=== PATIENT | female | born 1970 | race Caucasian/White ===

== ENCOUNTER 2016-05-10 11:12 | Emergency (ER) | payer MEDICAID ==
[~2016-05-10] VITALS: Ht 152.4 cm; Wt 80.5 kg
[~2016-05-10 11:12] MED LIST: AMO500 PO; CIPR7.5D4 LEFT EAR; MECL25TA2 PO; NPH10OT RIGHT EAR
[2016-05-10 11:21] VITALS: Ht 152.4 cm; Wt 80.5 kg
[2016-05-10] MEDS ORDERED: IBUPROFEN 600 MG TAB PO ONE (13:30)
--- NOTE | 2016-05-10 13:39 | RADRPT ---
PROCEDURE: XR Foot. CLINICAL INDICATION: Left foot pain. Trauma TECHNIQUE: Three views of the left foot are available for review. COMPARISON: None available FINDINGS: No acute fracture or dislocation is seen. Joint spaces are intact. Bony mineralization is normal. Soft tissues are unremarkable. No radiopaque foreign body is identified. Small posterior and moderate inferior calcaneal spurs. IMPRESSION: 1. No evidence of fracture or dislocation. 2. Small posterior and moderate inferior calcaneal spurs. RPTAT: QQ .Slava Velarde MD, MD Date Time Electronically viewed and signed by .Slava Velarde MD, MD on 05/10/2016 13:39 .M/
--- NOTE | 2016-05-10 13:40 | RADRPT ---
PROCEDURE: XR Ankle. CLINICAL INDICATION: Left ankle pain. Trauma TECHNIQUE: Three views of the left ankle were submitted for interpretation. COMPARISON: None. FINDINGS: No acute fracture or dislocation is seen. The joint spaces are intact. The bony mineralization is normal. The soft tissues are unremarkable. No radiopaque foreign body is identified. Small posterior and moderate inferior calcaneal spurs. IMPRESSION: 1. No evidence of fracture or dislocation. RPTAT: QQ .Slava Velarde MD, MD Date Time Electronically viewed and signed by .Slava Velarde MD, MD on 05/10/2016 13:40 .M/
--- NOTE | 2016-05-10 13:48 | RADRPT ---
PROCEDURE: XR Knee. CLINICAL INDICATION: Left knee pain, trauma TECHNIQUE: 3 images of the left knee are available for review. COMPARISON: None available FINDINGS: There is no acute fracture. Alignment is normal. Joint spaces are preserved. Soft tissues are grossly unremarkable. IMPRESSION: 1. No radiographic evidence of acute osseous abnormality of the left knee. RPTAT: UU .Luigi Drake MD, MD Date Time Electronically viewed and signed by .Luigi Drake MD, MD on 05/10/2016 13:48 .K/
[2016-05-10] MEDS ORDERED: IBUP-1542 PO (14:28)
--- NOTE | 2016-05-10 14:34 | ERD ---
ER Documentation Chief Complaint Date/Time DATE: 05/10/16 TIME: 14:30 Chief Complaint pt bib self left ankle swelling x 1 wk, unk cause HPI 46-year-old female with no significant past medical history presents to the ED complaining of left heel, left ankle pain after jumping over a puddle of water. She states that she felt like she twisted her left ankle. States that the pain radiates to her left knee. Describes the pain as pressure-like and rates it a 8 out of 10. Denies taking any pain medicines. Denies any weakness, loss of sensation, loss of range of motion, head or neck injuries fever, chills. Denies falling. Denies any loss of consciousness. ROS All systems reviewed and are negative except as per history of present illness. Medications Home Meds Active Scripts Ibuprofen* (Motrin*) 600 Mg Tab, 600 MG PO Q6, #30 TAB Prov:CIARA VALLEJO PA-C 05/10/16 Ciprofloxacin Hcl/Dexameth (Ciprodex Otic Suspension) 7.5 Ml Drops.susp, 4 DROP LEFT EAR BID for 7 Days, EA Prov:NEETA ADORNO NP 02/09/16 Amoxicillin* (Amoxicillin*) 500 Mg Cap, 500 MG PO BID for 7 Days, CAP Prov:NEETA ADORNO NP 02/09/16 Amoxicillin* (Amoxicillin*) 500 Mg Cap, 500 MG PO TID for 7 Days, CAP Prov:ANGEL GARZA DO 12/05/14 Meclizine Hcl* (Antivert*) 25 Mg Tablet, 25 MG PO Q6H Y for vertigo, #15 TAB Prov:ANGEL GARZA DO 12/05/14 Neomycin/Polymyxin/Hydrocort* (Cortisporin* Otic) 10 Ml Susp, 4 DROP RIGHT EAR QID for 7 Days, EA Prov:ANGEL GARZA DO 12/05/14 Allergies Allergies: Coded Allergies: No Known Allergy (Unverified , 02/09/16) PMhx/Soc Medical and Surgical Hx: pt denies Medical Hx History of Surgery: Yes (CSECTION) Anesthesia Reaction: No Hx Neurological Disorder: No Hx Respiratory Disorders: No Hx Cardiac Disorders: No Hx Psychiatric Problems: No Hx Miscellaneous Medical Probl: Yes (HIGH CHOLESTEROL) Hx Alcohol Use: No Hx Substance Use: No Hx Tobacco Use: No Smoking Status: Never smoker Physical Exam Vitals Vital Signs Date Time Temp Pulse Resp B/P Pulse Ox O2 Delivery O2 Flow Rate FiO2 05/10/16 11:21 98.3 82 16 137/65 98 Physical Exam Const: [id number], well-nourished. In no acute distress. Head: Atraumatic, normocephalic Eyes: Normal Conjunctiva without injection ENT: Normal external ear, nose and mouth. Neck: Full range of motion. No meningismus. Resp: Clear to auscultation bilaterally. No wheezing, rhonchi, rales, or crackles. No accessory muscle use. No retractions. Cardio: Regular rate and rhythm, no murmurs Skin: No petechiae or rashes Back: No midline tenderness. No CVA tenderness. Ext: No cyanosis, or edema. Tenderness to palpation of the left medial and lateral malleolus. Denies to palpation of the left calcaneus. Patient is able to bilaterally flex, extend ankle. No edema, erythema. No deformities noted. Slight tubular and fibula pain. Cap refill less than 2 seconds. Distal pulses intact bilaterally. Neur: Awake and alert. Normal gait and coordination. Muscle strength 5/5. Sensation intact bilaterally. Psych: Normal Mood and Affect Results 24 hrs Current Medications Medications (Trade) Dose Ordered Sig/Triny Route PRN Reason Start Time Stop Time Status Last Admin Dose Admin Ibuprofen (Motrin) 600 mg ONCE ONCE PO 05/10/16 13:30 05/10/16 13:31 DC 05/10/16 13:44 Procedures/MDM This is a 46-year-old female with a past medical history of P diabetes presents the ED complaining of left ankle, left heel, left knee pain. Patient is afebrile and nontoxic-appearing. Patient has normal vital signs. Patient was given ibuprofen here in the ED with improvement of her pain. PROCEDURE: XR Ankle. CLINICAL INDICATION: Left ankle pain. Trauma TECHNIQUE: Three views of the left ankle were submitted for interpretation. COMPARISON: None. FINDINGS: No acute fracture or dislocation is seen. The joint spaces are intact. The bony mineralization is normal. The soft tissues are unremarkable. No radiopaque foreign body is identified. Small posterior and moderate inferior calcaneal spurs. IMPRESSION: 1. No evidence of fracture or dislocation. PROCEDURE: XR Foot. CLINICAL INDICATION: Left foot pain. Trauma TECHNIQUE: Three views of the left foot are available for review. COMPARISON: None available FINDINGS: No acute fracture or dislocation is seen. Joint spaces are intact. Bony mineralization is normal. Soft tissues are unremarkable. No radiopaque foreign body is identified. Small posterior and moderate inferior calcaneal spurs. IMPRESSION: 1. No evidence of fracture or dislocation. 2. Small posterior and moderate inferior calcaneal spurs. PROCEDURE: XR Knee. CLINICAL INDICATION: Left knee pain, trauma TECHNIQUE: 3 images of the left knee are available for review. COMPARISON: None available FINDINGS: There is no acute fracture. Alignment is normal. Joint spaces are preserved. Soft tissues are grossly unremarkable. IMPRESSION: 1. No radiographic evidence of acute osseous abnormality of the left knee. Patient is placed in a donna wrap with crutches to help with ambulation. Splint Assessment: Neurovascularly intact pre and post splint placement with good fit. Patient's extremity symptoms have stabilized while they have been evaluated in the department and are appropriate for outpatient follow up. No evidence of fractures, dislocations, compartment syndrome, neurologic injury, vascular injury, open joint, open fracture, tendon laceration, septic arthritis, osteomyelitis, DVT, foreign body, or other emergent conditions. Discharge medications: Ibuprofen Follow up with primary care physician in 1-2 days. Instructed patient to return to the ED sooner for any worsening symptoms. Patient's questions were answered. Patient understood and agreed with discharge plan. Patient discharged stable. Departure Diagnosis: Primary Impression: Calcaneal spur, left Additional Impression: Left ankle sprain Encounter type: sequela Involved ligament of ankle: unspecified ligament Qualified Code: S93.402S - Sprain of left ankle, unspecified ligament, sequela Condition: Stable Patient Instructions: What Are Ankle Sprains?, Heel Spur Referrals: COMMUNITY CLINICS YOU HAVE RECEIVED A MEDICAL SCREENING EXAM AND THE RESULTS INDICATE THAT YOU DO NOT HAVE A CONDITION THAT REQUIRES URGENT TREATMENT IN THE EMERGENCY DEPARTMENT. FURTHER EVALUATION AND TREATMENT OF YOUR CONDITION CAN WAIT UNTIL YOU ARE SEEN IN YOUR DOCTORS OFFICE WITHIN THE NEXT 1-2 DAYS. IT IS YOUR RESPONSIBILITY TO MAKE AN APPOINTMENT FOR FOLOW-UP CARE. IF YOU HAVE A PRIMARY DOCTOR --you should call your primary doctor and schedule an appointment IF YOU DO NOT HAVE A PRIMARY DOCTOR YOU CAN CALL OUR PHYSICIAN REFERRAL HOTLINE AT IF YOU CAN NOT AFFORD TO SEE A PHYSICIAN YOU CAN CHOSE FROM THE FOLLOWING [facility] [address] [place] [facility] [address] [place] [facility] [address] [facility] [address] [facility] [address] [facility]. [facility] [address] [facility]. [facility] YOU HAVE RECEIVED A MEDICAL SCREENING EXAM AND THE RESULTS INDICATE THAT YOU DO NOT HAVE A CONDITION THAT REQUIRES URGENT TREATMENT IN THE EMERGENCY DEPARTMENT. FURTHER EVALUATION AND TREATMENT OF YOUR CONDITION CAN WAIT UNTIL YOU ARE SEEN IN YOUR DOCTORS OFFICE WITHIN THE NEXT 1-2 DAYS. IT IS YOUR RESPONSIBILITY TO MAKE AN APPOINTMENT FOR FOLOW-UP CARE. IF YOU HAVE A PRIMARY DOCTOR --you should call your primary doctor and schedule and appointment IF YOU DO NOT HAVE A PRIMARY DOCTOR YOU CAN CALL OUR PHYSICIAN REFERRAL HOTLINE AT . IF YOU CAN NOT AFFORD TO SEE A PHYSICIAN YOU CAN CHOSE FROM THE FOLLOWING [facility] INSTITUTIONS: [facility] [address] [place] [address] [facility] [address] [place] [address] [facility] [address] [place] [address] [facility] Urgent Care 7 a.m.- 11 p.m. Every Day of the Week NO APPOINTMENT OR AUTHORIZATION NEEDED [facility] Hours: Mon-Fri 9:00 AM - 5:00 PM Additional Instructions: Visite a samuel rajani queen para un EXAMEN.Regrese a estas instalaciones si no se mejora yamileth esperbamos o yamileth le vals. CIARA VALLEJO PA-C May 10, 2016 14:34
[2016-05-10 14:39] VITALS: BP 119/64; PULSE 80; RESP 18
== END 2016-05-10 14:43 | disposition home or self-care (01) ==
LOC: FTE 11:12
DX: M77.32 Calcaneal spur, left foot (principal); S93.402A Sprain of unspecified ligament of left ankle, initial encounter; X50.1XXA Overexertion from prolonged static or awkward postures, initial encounter; Y92.9 Unspecified place or not applicable
CPT/HCPCS: 73562; 73610; 73630; Z7502; Z7610

== ENCOUNTER 2017-01-10 11:26 | Emergency (ER) | payer MEDICAID ==
[~2017-01-10] VITALS: Ht 157.5 cm; Wt 90.0 kg
[~2017-01-10 11:26] MED LIST changes: -AMO500 PO; +AMOX500C2 PO; +IBUP-1542 PO
[2017-01-10 11:27] VITALS: Ht 157.5 cm; Wt 90.0 kg
--- NOTE | 2017-01-10 12:12 | RADRPT ---
PROCEDURE: XR Chest. CLINICAL INDICATION: Cough. TECHNIQUE: Single frontal view. COMPARISON: None. FINDINGS: The lungs are clear. The heart size is normal. There is no pleural effusion. There is no pneumothorax. IMPRESSION: 1. Normal chest radiograph. RPTAT: QQ .Austin Mitchell MD, Date Time Electronically viewed and signed by .Austin Mitchell MD, on 01/10/2017 12:12 .R/
[2017-01-10] MEDS ORDERED: AZIT250T94 PO (12:47)
[2017-01-10] MEDS ORDERED: UDROBDM PO (12:47)
--- NOTE | 2017-01-10 12:57 | ERD ---
ER Documentation Chief Complaint Date/Time DATE: 01/10/17 TIME: 12:55 Chief Complaint COUGH X 3 WEEKS HPI 47-year-old female complains of slightly productive cough last few weeks. Denies fevers. She has mild nasal congestion. Symptoms are worse at night. She denies any sustained chest pain, vomiting, abdominal pain. ROS All systems reviewed and are negative except as per history of present illness. Medications Home Meds Active Scripts Guaifenesin-Dextromethorphan* (Robitussin* DM) 100MG/10MG/5ML Syrup, 5 ML PO Q4H for 5 Days, ML Prov:MOSES MUIR MD 01/10/17 Azithromycin* (Zithromax*) 250 Mg Tablet, 250 MG PO .ZPACK DIRECTED, #6 TAB TAKE 500 MG (2 TABS) THE FIRST DAY THEN 250 MG (1 TAB) DAYS 2-5 Prov:MOSES MUIR MD 01/10/17 Ibuprofen* (Motrin*) 600 Mg Tab, 600 MG PO Q6, #30 TAB Prov:CIARA VALLEJO PA-C 05/10/16 Ciprofloxacin Hcl/Dexameth (Ciprodex Otic Suspension) 7.5 Ml Drops.susp, 4 DROP LEFT EAR BID for 7 Days, EA Prov:NEETA ADORNO NP 02/09/16 Amoxicillin* (Amoxicillin*) 500 Mg Cap, 500 MG PO BID for 7 Days, CAP Prov:NEETA ADORNO NP 02/09/16 Amoxicillin* (Amoxicillin*) 500 Mg Cap, 500 MG PO TID for 7 Days, CAP Prov:ANGEL GARZA DO 12/05/14 Meclizine Hcl* (Antivert*) 25 Mg Tablet, 25 MG PO Q6H Y for vertigo, #15 TAB Prov:ANGEL GARZA DO 12/05/14 Neomycin/Polymyxin/Hydrocort* (Cortisporin* Otic) 10 Ml Susp, 4 DROP RIGHT EAR QID for 7 Days, EA Prov:ANGEL GARZA DO 12/05/14 Allergies Allergies: Coded Allergies: No Known Allergy (Unverified , 02/09/16) PMhx/Soc History of Surgery: Yes (CSECTION) Anesthesia Reaction: No Hx Neurological Disorder: No Hx Respiratory Disorders: No Hx Cardiac Disorders: No Hx Psychiatric Problems: No Hx Miscellaneous Medical Probl: Yes (HIGH CHOLESTEROL) Hx Alcohol Use: No Hx Substance Use: No Hx Tobacco Use: No Physical Exam Vitals Vital Signs Date Time Temp Pulse Resp B/P Pulse Ox O2 Delivery O2 Flow Rate FiO2 01/10/17 11:27 98.4 99 20 140/85 99 Physical Exam Const: [], [id number]-gluxdbhgo. Head: Atraumatic Eyes: Normal Conjunctiva ENT: Normal External Ears, Nose and Mouth. TMs and oropharynx normal Neck: Full range of motion..~ No meningismus. Resp: Clear to auscultation bilaterally slight rhonchi without rales or wheezing. Cardio: Regular rate and rhythm, no murmurs Abd: Soft, non tender, non distended. Normal bowel sounds Skin: No petechiae or rashes Back: No midline or flank tenderness Ext: No cyanosis, or edema Neur: Awake and alert Psych: Normal Mood and Affect Procedures/MDM Chest X-ray 1V Interpreted by me: Soft Tissue: No acute abnormalities Bones: No acute abnormalities Mediastinum/Cardiac Silhouette/Lungs: [No acute abnormalities]. Impression- normal 1 view chest x-ray Patient presents with URI symptoms productive cough last 3 weeks. Given the duration she will be treated with Zithromax and Robitussin primary care follow- up and return precautions. The patient was stable with no new complaints during the ER course. Clinically, there is no current evidence to suggest meningitis, sepsis, acute abdomen, pneumonia, acute coronary syndrome, pulmonary embolism, or any other emergent condition appearing to require further evaluation or hospitalization. The patient should certainly return for any new or worsening symptoms per the aftercare instructions. They should otherwise follow-up with her primary care doctor for reevaluation this week. Departure Diagnosis: Primary Impression: Cough Condition: Stable Patient Instructions: Acute Bronchitis Additional Instructions: X-ray normal Examines normal hoy. Cheque otro vez con samuel doctor primario en el proximo mittal or regresa para mas o nueva simptomas. MOSES MUIR MD Jan 10, 2017 12:57
[2017-01-10 13:45] VITALS: BP 134/80; PULSE 88; RESP 20; TEMP 98.6
== END 2017-01-10 13:48 | disposition home or self-care (01) ==
LOC: FTE 11:26
DX: R05 Cough (principal)
CPT/HCPCS: 71010; Z7502

== ENCOUNTER 2017-04-10 11:02 | Emergency (ER) | END 2017-04-11 17:41 | disposition home or self-care (01) ==

== ENCOUNTER 2017-10-10 14:15 | Emergency (ER) | END 2017-10-10 18:43 | disposition home or self-care (01) ==

== ENCOUNTER 2018-02-21 15:04 | Emergency (ER) | END 2018-02-21 18:14 | disposition home or self-care (01) ==

== ENCOUNTER → 2018-02-25 | Emergency (ER) | END | disposition home or self-care (01) ==

== ENCOUNTER 2018-04-05 10:33 | Emergency (ER) | payer MEDICAID ==
[~2018-04-05] VITALS: Ht 160 cm; Wt 82.4 kg
[~2018-04-05 10:33] MED LIST changes: -AMOX500C2 PO; -CIPR7.5D4 LEFT EAR; -IBUP-1542 PO; -MECL25TA2 PO; -NPH10OT RIGHT EAR; +PANT40TA3 PO
[2018-04-05 10:36] VITALS: Ht 160 cm; Wt 82.4 kg
[2018-04-05] MEDS ORDERED: IBUPROFEN 800 MG TAB PO ONE (11:00)
[2018-04-05] MEDS ORDERED: LORAZEPAM 2 MG INJ IV ONE (11:30)
[2018-04-05] MEDS ORDERED: IBUP-1542 PO (12:30)
--- NOTE | 2018-04-05 12:31 | ERD ---
ER Documentation Chief Complaint Chief Complaint left sided chest pain and cough x 3 day HPI Patient is a 48-year-old female with high cholesterol who presents with chest pain. The patient has left-sided chest pain for the past 3 days. The pain is been constant. She has had no treatment as of yet. She has cough and congestion. She has pain with palpation. Upon review of old medical records the patient has multiple visits to the ER since 2016. She does not know the name of her primary doctor. ROS All systems reviewed and are negative except as per history of present illness. Medications Home Meds Active Scripts Ibuprofen* (Motrin*) 600 Mg Tab, 600 MG PO Q6H PRN for PAIN AND OR ELEVATED TEMP, #30 TAB Prov:BRONSON KING MD 04/05/18 Pantoprazole* (Protonix*) 40 Mg Tablet.dr, 40 MG PO DAILY, #15 TAB Prov:OPAL CASSIDY MD 02/25/18 Allergies Allergies: Coded Allergies: No Known Allergy (Unverified , 04/05/18) PMhx/Soc Medical and Surgical Hx: pt denies Medical Hx History of Surgery: No Anesthesia Reaction: No Hx Neurological Disorder: No Hx Respiratory Disorders: No Hx Cardiac Disorders: No Hx Psychiatric Problems: No Hx Miscellaneous Medical Probl: No Hx Alcohol Use: No Hx Substance Use: No Hx Tobacco Use: No Smoking Status: Never smoker FmHx Family History: No coronary disease Physical Exam Vitals Vital Signs Date Temp Pulse Resp B/P (MAP) Pulse Ox O2 O2 Flow FiO2 Time Delivery Rate 04/05/18 71 18 125/74 99 Room Air 13:00 (91) 04/05/18 98.3 81 20 139/90 98 10:36 (106) Physical Exam Const: No acute distress Head: Atraumatic Eyes: Normal Conjunctiva ENT: Normal External Ears, Nose and Mouth. Neck: Full range of motion. No meningismus. Resp: Clear to auscultation bilaterally Cardio: Regular rate and rhythm, no murmurs, chest wall pain with palpation Abd: Soft, non tender, non distended. Normal bowel sounds Skin: No petechiae or rashes Back: No midline or flank tenderness Ext: No cyanosis, or edema Neur: Awake and alert Psych: Normal Mood and Affect Result Diagram: 04/05/18 1100 04/05/18 1100 Results 24 hrs Laboratory Tests Test 04/05/18 11:00 04/05/18 11:51 White Blood Count 6.1 10^3/ul Red Blood Count 4.89 10^6/ul Hemoglobin 12.6 g/dl Hematocrit 38.7 % Mean Corpuscular Volume 79.1 fl Mean Corpuscular Hemoglobin 25.8 pg Mean Corpuscular Hemoglobin Concent 32.6 g/dl Red Cell Distribution Width 13.5 % Platelet Count 432 10^3/UL Mean Platelet Volume 9.3 fl Immature Granulocytes % 0.300 % Neutrophils % 58.4 % Lymphocytes % 27.8 % Monocytes % 6.1 % Eosinophils % 6.6 % Basophils % 0.8 % Nucleated Red Blood Cells % 0.0 /100WBC Immature Granulocytes # 0.020 10^3/ul Neutrophils # 3.5 10^3/ul Lymphocytes # 1.7 10^3/ul Monocytes # 0.4 10^3/ul Eosinophils # 0.4 10^3/ul Basophils # 0.1 10^3/ul Nucleated Red Blood Cells # 0.0 10^3/ul Sodium Level 138 mmol/L Potassium Level 4.4 mmol/L Chloride Level 103 mmol/L Carbon Dioxide Level 26 mmol/L Anion Gap 9 Blood Urea Nitrogen 10 mg/dl Creatinine 0.60 mg/dl Est Glomerular Filtrat Rate mL/min > 60 mL/min Glucose Level 93 mg/dl Calcium Level 9.7 mg/dl Troponin I < 0.012 ng/ml POC Beta HCG, Qualitative NEGATIVE Current Medications Medications Dose Sig/Triny Start Time Status Last (Trade) Ordered Route PRN Stop Time Admin Dose Reason Admin Ibuprofen 800 mg ONCE ONCE 04/05/18 DC 04/05/18 (Motrin) PO 11:00 11:13 04/05/18 11:01 Lorazepam 0.5 mg ONCE ONCE 04/05/18 DC 04/05/18 (Ativan) IV 11:30 11:13 04/05/18 11:31 Procedures/MDM EKG read by me: Rate/Rhythm: Regular rate and rhythm at a rate of 75 Intervals: Normal Impression: No evidence of ischemia or arrhythmia Chest x-ray read by radiology. Patient is a 48-year-old female who presents with chest pain. EKG and chest x- ray were negative. Troponin is negative. I doubt acute coronary syndrome, pneumonia, pneumothorax, pulmonary embolism, or aortic dissection. I do not believe the patient requires further workup or admission in the hospital at this time. I believe outpatient management is appropriate. Departure Diagnosis: Primary Impression: Chest pain Chest pain type: unspecified Qualified Codes: R07.9 - Chest pain, unspecified Condition: Fair Patient Instructions: Chest Pain, Uncertain Cause Additional Instructions: Llame al doctor MAANA y jessica sunni ALTAGRACIA PARA DENTRO DE 1-2 MORENO.Dgale a la secretaria que nosotros le instruimos hacer esta altagracia.Avise o llame si samuel condicin se empeora antes de la altagracia. Regresa aqui si peor o no mejor. BRONSON KING MD Apr 05, 2018 12:31
[2018-04-05 13:00] VITALS: BP 125/74; PULSE 71; RESP 18
== END 2018-04-05 13:02 | disposition home or self-care (01) ==
LOC: E/R 10:33
DX: R07.9 Chest pain, unspecified (principal); R40.2142 Coma scale, eyes open, spontaneous, at arrival to emergency department; R40.2362 Coma scale, best motor response, obeys commands, at arrival to emergency department; R40.2252 Coma scale, best verbal response, oriented, at arrival to emergency department
CPT/HCPCS: 36415; 71045; 80048; 81025; 84484; 85025; 93005; 96374; J2060; Z7502; Z7610

== ENCOUNTER 2018-05-03 12:31 | Emergency (ER) | payer MEDICAID ==
[~2018-05-03] VITALS: Ht 167.6 cm; Wt 83.1 kg
[~2018-05-03 12:31] MED LIST changes: +IBUP-1542 PO
[2018-05-03 12:36] VITALS: BP 130/76; PULSE 84; RESP 20; Ht 167.6 cm; Wt 83.1 kg
[2018-05-03] MEDS ORDERED: IBUP-1542 PO (14:34)
[2018-05-03] MEDS ORDERED: D-ME473S2 PO (14:34)
--- NOTE | 2018-05-03 14:37 | ERD ---
ER Documentation Chief Complaint Chief Complaint Complains of a sore throat x 2 days HPI 48-year-old female presents with cough and sore throat for 2 days. She has no history of fevers, vomiting, chest pain, abdominal pain. She is here with her son with similar symptoms. ROS All systems reviewed and are negative except as per history of present illness. Medications Home Meds Active Scripts Ibuprofen* (Motrin*) 600 Mg Tab, 600 MG PO Q6, #15 TAB Prov:MOSES MUIR MD 05/03/18 Dextromethorphan Hb-Promethazine Hcl* (Promethazine DM* Syrup) 473 Ml Syrup, 5 ML PO Q6 PRN for COUGH for 5 Days, ML Prov:MOSES MUIR MD 05/03/18 Ibuprofen* (Motrin*) 600 Mg Tab, 600 MG PO Q6H PRN for PAIN AND OR ELEVATED TEMP, #30 TAB Prov:BRONSON KING MD 04/05/18 Pantoprazole* (Protonix*) 40 Mg Tablet.dr, 40 MG PO DAILY, #15 TAB Prov:OPAL CASSIDY MD 02/25/18 Allergies Allergies: Coded Allergies: No Known Allergy (Unverified , 04/05/18) PMhx/Soc Medical and Surgical Hx: pt denies Medical Hx, pt denies Surgical Hx History of Surgery: No Anesthesia Reaction: No Hx Neurological Disorder: No Hx Respiratory Disorders: No Hx Cardiac Disorders: No Hx Psychiatric Problems: No Hx Miscellaneous Medical Probl: No Hx Alcohol Use: No Hx Substance Use: No Hx Tobacco Use: No Smoking Status: Never smoker FmHx Family History: No diabetes, No coronary disease, No other Physical Exam Vitals Vital Signs Date Temp Pulse Resp B/P (MAP) Pulse Ox O2 O2 Flow FiO2 Time Delivery Rate 05/03/18 98.6 84 20 130/76 97 12:36 (94) Physical Exam Const: No acute distress Head: Atraumatic Eyes: Normal Conjunctiva ENT: Normal External Ears, Nose and Mouth. TMs and oropharynx normal. Neck: Full range of motion. No meningismus. Resp: Clear to auscultation bilaterally Cardio: Regular rate and rhythm, no murmurs Abd: Soft, non tender, non distended. Normal bowel sounds Skin: No petechiae or rashes Back: No midline or flank tenderness Ext: No cyanosis, or edema Neur: Awake and alert Psych: Normal Mood and Affect Procedures/MDM Patient presents with URI symptoms for 2 days with essentially normal exam. She has no signs of hypoxemia, respiratory distress, chest pain, abdominal pain. S he has no clinical signs of pneumonia on exam. She will treated with promethazine DM, ibuprofen, primary care follow-up and return precautions. The patient was stable with no new complaints during the ER course. Clinically, there is no current evidence to suggest meningitis, sepsis, acute abdomen, pneumonia, stroke, acute coronary syndrome, pulmonary embolism, aortic dissection or any other emergent condition appearing to require further evaluation or hospitalization. Patient counseled regarding my diagnostic impression and care plan. Prior to discharge all questions answered. Pt agrees with treatment plan and understands strict return precautions. Pt is instructed to follow up with primary care provider within 24-48 hours. Precautionary instructions provided including instructions to return to the ER if not improving or for any worsening or changing symptoms or concerns. Departure Diagnosis: Primary Impression: URI, acute Condition: Stable Patient Instructions: Uri, Viral, No Abx (Adult) Additional Instructions: Probablamente un virus que dura 2-4 mittal. cheque otro vez en el proximo jairo para mas simptomas- vomito, dolor, ilnwood, problemas con respirando, o con samuel doctor primario. MOSES MUIR MD May 03, 2018 14:37
== END 2018-05-03 14:49 | disposition home or self-care (01) ==
LOC: FTE 12:31
DX: J06.9 Acute upper respiratory infection, unspecified (principal)
CPT/HCPCS: 99283

== ENCOUNTER 2018-07-05 09:34 | Emergency (ER) | payer MEDICAID ==
[~2018-07-05] VITALS: Ht 157.5 cm; Wt 85.0 kg
[~2018-07-05 09:34] MED LIST changes: +D-ME473S2 PO
[2018-07-05 09:39] VITALS: BP 144/79; PULSE 75; Ht 157.5 cm; Wt 85.0 kg
[2018-07-05] MEDS ORDERED: KETOROLAC 30 MG INJ IM STA (09:50)
[2018-07-05] MEDS ORDERED: IBUP-1542 PO (11:26)
--- NOTE | 2018-07-05 11:27 | ERD ---
ER Documentation Chief Complaint Chief Complaint chest pain radiating to back x 3 days HPI Patient is a 48-year-old female with no medical problems who presents with chest pain. The symptoms started 3 days ago and have been constant. She denies fevers or cough. She tried ibuprofen. Upon review of old medical records this is the patient's 11th visit to the ER since 2014. She does not currently have a primary doctor. ROS All systems reviewed and are negative except as per history of present illness. Medications Home Meds Active Scripts Ibuprofen* (Motrin*) 600 Mg Tab, 600 MG PO Q6H PRN for PAIN AND OR ELEVATED TEMP, #30 TAB Prov:BRONSON KING MD 07/05/18 Ibuprofen* (Motrin*) 600 Mg Tab, 600 MG PO Q6, #15 TAB Prov:MOSES MUIR MD 05/03/18 Dextromethorphan Hb-Promethazine Hcl* (Promethazine DM* Syrup) 473 Ml Syrup, 5 M L PO Q6 PRN for COUGH for 5 Days, ML Prov:MOSES MUIR MD 05/03/18 Ibuprofen* (Motrin*) 600 Mg Tab, 600 MG PO Q6H PRN for PAIN AND OR ELEVATED TEMP, #30 TAB Prov:BRONSON KING MD 04/05/18 Pantoprazole* (Protonix*) 40 Mg Tablet.dr, 40 MG PO DAILY, #15 TAB Prov:OPAL CASSIDY MD 02/25/18 Allergies Allergies: Coded Allergies: No Known Allergy (Unverified , 04/05/18) PMhx/Soc Medical and Surgical Hx: pt denies Medical Hx History of Surgery: No Anesthesia Reaction: No Hx Neurological Disorder: No Hx Respiratory Disorders: No Hx Cardiac Disorders: No Hx Psychiatric Problems: No Hx Miscellaneous Medical Probl: No Hx Alcohol Use: No Hx Substance Use: No Hx Tobacco Use: No Smoking Status: Never smoker FmHx Family History: No coronary disease Physical Exam Vitals Vital Signs Date Temp Pulse Resp B/P (MAP) Pulse Ox O2 O2 Flow FiO2 Time Delivery Rate 07/05/18 98.2 75 16 144/79 99 09:39 (100) Physical Exam Const: No acute distress Head: Atraumatic Eyes: Normal Conjunctiva ENT: Normal External Ears, Nose and Mouth. Neck: Full range of motion. No meningismus. Resp: Clear to auscultation bilaterally Cardio: Regular rate and rhythm, no murmurs, chest wall pain with palpation Abd: Soft, non tender, non distended. Normal bowel sounds Skin: No petechiae or rashes Back: No midline or flank tenderness Ext: No cyanosis, or edema Neur: Awake and alert Psych: Normal Mood and Affect Result Diagram: 07/05/18 1005 07/05/18 1005 Results 24 hrs Laboratory Tests Test 07/05/18 10:05 07/05/18 10:15 White Blood Count 7.2 10^3/ul Red Blood Count 4.69 10^6/ul Hemoglobin 11.7 g/dl Hematocrit 37.6 % Mean Corpuscular Volume 80.2 fl Mean Corpuscular Hemoglobin 24.9 pg Mean Corpuscular Hemoglobin Concent 31.1 g/dl Red Cell Distribution Width 14.4 % Platelet Count 414 10^3/UL Mean Platelet Volume 8.9 fl Immature Granulocytes % 0.300 % Neutrophils % 57.1 % Lymphocytes % 30.0 % Monocytes % 5.7 % Eosinophils % 6.1 % Basophils % 0.8 % Nucleated Red Blood Cells % 0.0 /100WBC Immature Granulocytes # 0.020 10^3/ul Neutrophils # 4.1 10^3/ul Lymphocytes # 2.2 10^3/ul Monocytes # 0.4 10^3/ul Eosinophils # 0.4 10^3/ul Basophils # 0.1 10^3/ul Nucleated Red Blood Cells # 0.0 10^3/ul Sodium Level 138 mmol/L Potassium Level 3.8 mmol/L Chloride Level 101 mmol/L Carbon Dioxide Level 27 mmol/L Anion Gap 10 Blood Urea Nitrogen 11 mg/dl Creatinine 0.54 mg/dl Est Glomerular Filtrat Rate mL/min > 60 mL/min Glucose Level 97 mg/dl Calcium Level 9.3 mg/dl Troponin I < 0.012 ng/ml POC Beta HCG, Qualitative NEGATIVE Current Medications Medications Dose Sig/Triny Start Time Status Last (Trade) Ordered Route PRN Stop Time Admin Dose Reason Admin Ketorolac 30 mg ONCE STAT 07/05/18 DC 07/05/18 Tromethamine IM 09:50 07/05/18 10:12 (Toradol) 09:51 Procedures/MDM EKG read by me: Rate/Rhythm: Regular rate and rhythm at a rate of 78 Intervals: Normal Impression: No evidence of ischemia or arrhythmia Chest x-ray negative per radiology. Patient is a 48-year-old female with no cardiac risk factors who presents with chest pain. Laboratory studies were negative including a negative troponin. EKG shows no ischemia and chest x-ray was negative. At this point I doubt acute coronary syndrome, pneumonia, pneumothorax, pulmonary embolism, or aortic dissection. The patient will be discharged but will need to follow-up closely with a local clinics within 24-48 hours if she does not currently have a primary doctor. She can return for any worsening symptoms. Departure Diagnosis: Primary Impression: Chest pain Chest pain type: unspecified Qualified Codes: R07.9 - Chest pain, unspecified Condition: Fair Patient Instructions: Chest Pain, Uncertain Cause Additional Instructions: Llame al doctor MAANA y jessica sunni ALTAGRACIA PARA DENTRO DE 1-2 MORENO.Dgale a la secretaria que nosotros le instruimos hacer esta altagracia.Avise o llame si samuel condicin se empeora antes de la altagracia. Regresa aqui si peor o no mejor. BRONSON KING MD Jul 05, 2018 11:27
[2018-07-05 15:37] VITALS: RESP 18
== END 2018-07-05 15:38 | disposition home or self-care (01) ==
LOC: E/R 09:34
DX: R07.9 Chest pain, unspecified (principal)
CPT/HCPCS: 36415; 71045; 80048; 81025; 84484; 85025; 93005; 96372; J1885; Z7502

== ENCOUNTER 2018-09-07 09:16 | Emergency (ER) | payer MEDICAID ==
[~2018-09-07] VITALS: Ht 154.9 cm; Wt 84.3 kg
[2018-09-07 09:23] VITALS: Ht 154.9 cm; Wt 84.3 kg
[2018-09-07] MEDS ORDERED: KETOROLAC 30 MG INJ IM STA (09:40)
[2018-09-07] MEDS ORDERED: IBUP800T48 PO (10:37)
[2018-09-07] MEDS ORDERED: ALBU18HF INHALATION (10:37)
[2018-09-07] MEDS ORDERED: MECL-77 PO (10:37)
--- NOTE | 2018-09-07 10:57 | ERD ---
ER Documentation Chief Complaint Chief Complaint abdominal pain, headache & dizziness x 4days HPI During the patient's encounter translation services were utilized Language: Mongolian Source: In person This is a 48-year-old female presents to the emergency room with 3 to 4 days of symptoms including cough that is slightly productive of clear sputum with associated chest wall pain with coughing. She describes bilateral thorax pain with coughing that is only with coughing and nonexertional. She denies any pleuritic pain. No significant shortness of breath. She also describes dizziness that she describes as vertigo which she has been diagnosed in the past with thorough work-up. She denies any fevers or chills, nausea vomiting or diarrhea. There is a mild frontal headache that is gradual in onset, 1 out of 10. ROS All systems reviewed and are negative except as per history of present illness. Medications Home Meds Active Scripts Meclizine Hcl* (Meclizine Hcl*) 25 Mg Tablet, 25 MG PO Q8H PRN for DIZZINESS, #20 TAB Prov:KRIS DE LOS SANTOS MD 09/07/18 Ibuprofen* (Motrin*) 800 Mg Tab, 800 MG PO Q6H PRN for PAIN AND OR ELEVATED TEMP, #30 TAB Prov:KRIS DE LOS SANTOS MD 09/07/18 Albuterol Sulfate* (Ventolin HFA*) 18 Gm Hfa.aer.ad, 2 PUFF INHALATION Q4H, #1 INHALER Prov:KRIS DE LOS SANTOS MD 09/07/18 Discontinued Scripts Ibuprofen* (Motrin*) 600 Mg Tab, 600 MG PO Q6H PRN for PAIN AND OR ELEVATED TEMP, #30 TAB Prov:BRONSON KING MD 07/05/18 Ibuprofen* (Motrin*) 600 Mg Tab, 600 MG PO Q6, #15 TAB Prov:MOSES MUIR MD 05/03/18 Dextromethorphan Hb-Promethazine Hcl* (Promethazine DM* Syrup) 473 Ml Syrup, 5 ML PO Q6 PRN for COUGH for 5 Days, ML Prov:MOSES MUIR MD 05/03/18 Ibuprofen* (Motrin*) 600 Mg Tab, 600 MG PO Q6H PRN for PAIN AND OR ELEVATED TEMP, #30 TAB Prov:BRONSON KING MD 04/05/18 Pantoprazole* (Protonix*) 40 Mg Tablet., 40 MG PO DAILY, #15 TAB Prov:OPAL CASSIDY MD 02/25/18 Allergies Allergies: Coded Allergies: No Known Allergy (Unverified , 09/07/18) PMhx/Soc History of Surgery: Yes (caesarian section x 1) Anesthesia Reaction: No Hx Neurological Disorder: No Hx Respiratory Disorders: No Hx Cardiac Disorders: No Hx Psychiatric Problems: No Hx Miscellaneous Medical Probl: No Hx Alcohol Use: No Hx Substance Use: No Hx Tobacco Use: No Smoking Status: Never smoker FmHx Family History: No diabetes Physical Exam Vitals Vital Signs Date Temp Pulse Resp B/P (MAP) Pulse Ox O2 O2 Flow FiO2 Time Delivery Rate 09/07/18 98.3 83 18 144/78 98 09:23 (100) Physical Exam General: Well developed, well nourished, no acute distress Head: Normocephalic, atraumatic. Eyes: Pupils equally reactive, EOM intact ENT: Moist mucous membranes Neck: Supple, no lymphadenopathy Respiratory: Lungs clear bilaterally, no distress, reproducible thoracic intercostal pain without rib deformities or step-offs or crepitus Cardiovascular: RRR, no murmurs, rubs, or gallops Abdominal: Soft, non-tender, non-distended, no peritoneal signs : Deferred MSK: No edema, no unilateral swelling, 5/5 strength Neurologic: Alert and oriented, moving all extremities, normal speech, no focal weakness, no cerebellar signs, no meningismus Skin: No rash Psych: Normal mood Results 24 hrs Laboratory Tests Test 09/07/18 10:00 POC Beta HCG, Qualitative NEGATIVE Current Medications Medications Dose Sig/Triny Start Time Status Last (Trade) Ordered Route PRN Stop Time Admin Dose Reason Admin Ketorolac 30 mg ONCE STAT 09/07/18 DC 09/07/18 Tromethamine IM 09:40 09/07/18 10:01 (Toradol) 09:41 Meclizine 25 mg ONCE ONCE 09/07/18 09/07/18 HCl PO 11:00 09/07/18 10:45 (Antivert) 11:01 Procedures/MDM EKG, MONITORS, & DIAGNOSTIC IMAGING: Chest x-ray: I reviewed and interpreted a 1 view of the chest Mediastinum: No enlargement Cardiac silhouette: No cardiomegaly Airspace: Clear lung ervin bilaterally without evidence of pneumothorax Bones: No evidence of fracture MEDICAL DECISION MAKING: Patient's presentation is very consistent with likely viral process likely acute viral bronchitis. The patient is very reproducible chest wall pain this is not consistent with cardiac etiology. No exertional symptoms and the pain is only with coughing. No indication for EKG or troponin. Her vertigo and dizziness are consistent with baseline with thorough work-up in the past. She has a nonfocal neurologic exam and does not require CT imaging. Meclizine provided. ER COURSE: * X-ray shows no evidence of bacterial infection. The patient is resting co mfortably. The patient can be safely discharged home with symptom control. No indication for antibiotics. CONSULTATION: None DISPOSITION PLAN: The patient does not have an identifiable emergent medical condition that warrants inpatient hospitalization at this time. The patient is deemed safe for discharge with outpatient follow-up. We discussed follow up with the patient's primary care doctor within 24 to 48 hours as needed. We also discussed return to the emergency room for worsening symptoms or worsening condition. Outpatient referral: None required Discharge Medications: Meclizine, Motrin, Ventolin Departure Diagnosis: Primary Impression: Acute bronchitis Bronchitis organism: unspecified organism Qualified Codes: J20.9 - Acute bronchitis, unspecified Additional Impression: Chest wall muscle strain Encounter type: initial encounter Qualified Codes: S29.011A - Strain of muscle and tendon of front wall of thorax, initial encounter Condition: Stable Patient Instructions: Acute Bronchitis, Vertigo, Unspecified Additional Instructions: Llame al doctor nombrado torres (Referral Sources) MAANA y jessica sunni ALTAGRACIA PARA DENTRO DE SUNNI SEMANA. Dgale a la secretaria que nosotros le instruimos hacer esta altagracia.Avise o llame si samuel condicin se empeora antes de la altagracia. KRIS DE LOS SANTOS MD Sep 07, 2018 10:57
[2018-09-07] MEDS ORDERED: MECLIZINE 12.5 MG TAB PO ONE (11:00)
[2018-09-07 12:10] VITALS: BP 116/75; PULSE 72; RESP 19
== END 2018-09-07 12:11 | disposition home or self-care (01) ==
LOC: E/R 09:16
DX: S29.011A Strain of muscle and tendon of front wall of thorax, initial encounter (principal); J20.9 Acute bronchitis, unspecified; X58.XXXA Exposure to other specified factors, initial encounter; Y92.9 Unspecified place or not applicable
CPT/HCPCS: 71045; 81025; 96372; J1885; Z7502; Z7610